=== PATIENT | female | born 1935 | race Caucasian/White ===

== ENCOUNTER 2016-09-27 19:54 | Inpatient (IN) | payer MEDICARE, OTHER ==
[~2016-09-27] VITALS: Ht 162.6 cm; Wt 75.0 kg
[~2016-09-27 19:54] MED LIST: CATAPRES0.1 MG PO; K-TAB10 MEQ PO; LASIX20 MG PO; METOPROLOL TAR100 M1 PO; NORCO 10/325 TA1 TA1 PO
--- NOTE | 2016-09-27 20:58 | NUR ---
RECIEVED TO ROOM 2122 FROM [facility] VIA EMS. PT A&O, RESPERATIONS EVEN ON RA. IV TO LEFT AC SL, SITE CLEAN AND DRY. PT C/O SORE THROAT, GAVE HER SOME ICE CHIPS AND INFORMED HER THAT I WILL CALL HER PHYSICIAN TO SEE IF WE CAN GET SOMETHING TO HELP HER THROAT. NO OTHER NEEDS AT THIS TIME, BED LOW, CL IN REACH, WILL CONT TO MONITOR.
[2016-09-27] MEDS ORDERED: LIPITOR80 MG PO (21:03)
[2016-09-27] MEDS ORDERED: PLAVIX75 MG PO (21:03)
[2016-09-27] MEDS ORDERED: BAYER CHEWABLE81 MG PO (21:03)
[2016-09-27] MEDS ORDERED: VENTOLIN HFA18 GM INH (21:05)
--- NOTE | 2016-09-27 22:10 | NUR ---
CHLORASEPTIC SPRAY GIVEN FOR C/O SORE THROAT.
--- NOTE | 2016-09-27 22:55 | NUR ---
D5NS INFUSING TO LEFT AC AT 50 CC/HR. PT DENIES NEEDS.
[2016-09-27 23:21] VITALS: BP 111/71; Ht 162.6 cm; Wt 75.0 kg
[2016-09-27 23:52] VITALS: BP 112/62
--- NOTE | 2016-09-28 01:33 | NUR ---
RESTING WITH EYES CLOSED, RESPERATIONS EVEN, NO S/S DISTRESS NOTED.
[2016-09-28 03:53] VITALS: BP 137/65
[2016-09-28 05:14] LABS: BASOPHILS 0.3 % (0-2); EOSINOPHILS 1.4 % (0-7); HEMATOCRIT 38.9 % (36.0-48.0); HEMOGLOBIN 12.6 g/dL (12-16); IMMATURE GRANULOCYTES 0.1 % (0-5); LYMPHOCYTES 12.6 % (15-50); MCH 29.5 pg (26.0-34.0); MCHC 32.4 g/dL (31.0-37.0); MCV 91.1 fL (80.0-100.0); MEAN PLATELET VOLUME 9.7 fL (7.4-10.4); MONOCYTES 8.4 % (2-11); NEUTROPHILS 77.2 % (40-80); RBC 4.27 10x6/uL (4.00-5.40); WBC 6.9 10x3/uL (4.8-10.8)
[2016-09-28 05:27] LABS: PLATELET COUNT 134 10x3/uL (130-400)
[2016-09-28 05:39] LABS: ALBUMIN 3.2 g/dL (3.4-5.0); ANION GAP 10.7 mmol/L (8-16); BILIRUBIN - DIRECT 0.31 mg/dL (0.00-0.30); BILIRUBIN - TOTAL 1.1 mg/dL (0.2-1.3); CALCIUM 8.3 mg/dL (8.5-10.1); CARBON DIOXIDE 26.8 mmol/L (21.0-32.0); CREATININE - SERUM 0.9 mg/dL (0.6-1.3); POTASSIUM - SERUM 3.5 mmol/L (3.5-5.1); PROTEIN - SERUM 6.4 g/dL (6.4-8.2)
--- NOTE | 2016-09-28 07:28 | NUR ---
PT SITTING UP IN BED WATCHING TV, DENIES ANY NEEDS. RR EVEN AND UNLABORED WILL CONT TO MONITOR
[2016-09-28 08:41] VITALS: BP 126/76
--- NOTE | 2016-09-28 09:10 | NUR ---
PT IN LEFT TILT POSITION. PHYSICAL ASSESSMENT DONE, SEE SHIFT ASSESS. O2 INFUSING VIA NC AT 2L/MIN. PT REPORTS PAIN IN THROAT AND HAS A PRODUCTIVE COUGH. REQUESTED THAT PT SAVE NEXT SPUTUM PRODUCTION FOR VIEWING. PT VERBALIZES UNDERSTANDING. EXPIRATORY WHEEZES NOTED IN RIGHT LOBES; LEFT LUNG BOATENG CLEAR TO AUSCULTATION. BOWEL SOUNDS ACTIVE, ABDOMEN DISTENDED. UPPER QUADRANTS PERCUSS HYPORESONANT. PT REPORTS PASSING GAS, DENIES BM SINCE 09/25/16. PT RATES PAIN 8/10 AND REQUESTS PAIN MED FOR THROAT. ORDERED NARCOTIC GIVEN AT THIS TIME. PT DENIES FURTHER NEEDS AT THIS TIME.
--- NOTE | 2016-09-28 10:40 | NUR ---
PT IN LEFT LATERAL POSITION RESTING WITH EYES CLOSED. RESP. EVEN AND UNLABORED. NO DISTRESS NOTED.
--- NOTE | 2016-09-28 12:00 | NUR ---
PT IN SEMI FOWLERS VISITING WITH "BOYFRIEND". PT INQUIRING ABOUT ETA ON ARRIVAL OF DR CANALES. INFORMED PT THAT MD USUALLY ROUNDS LATER IN THE DAY. BOTH VERBALIZE UNDERSTANDING AND DENY FURTHER NEEDS AT THIS TIME.
[2016-09-28 12:46] VITALS: BP 92/57
--- NOTE | 2016-09-28 13:00 | NUR ---
PT IN LEFT LATERAL POSITION RESTING WITH EYES CLOSED. RESP. EVEN AND UNLABORED.
--- NOTE | 2016-09-28 15:10 | NUR ---
PT IN LEFT TILT POSITION. PT PRODUCING GREENISH YELLOW SPUTUM WITH COUGHING AND REPORTS PAIN OF 10/10 IN RIGHT UPPER QUADRANT AND THROAT. NORCO GIVEN ORDERED. PT REQUESTING BREATHING TREATMENT TO BE ADMINISTERED.
--- NOTE | 2016-09-28 15:24 | NUR ---
RESPIRATORY IN ROOM TO ADMINISTER MED. O2 SAT 97 ON 2L/MIN. PT DENIES FURTHER NEEDS AT THIS TIME.
--- NOTE | 2016-09-28 15:55 | NUR ---
PT CONTINUES TO COUGH UP YELLOW/GREEN SPUTUM, SCANT AMOUNT OF BRIGHT RED BLOOD NOTED IN SPUTUM. ASKED PT IF THIS HAS BEEN HAPPENING, PT STATES, I HAVE BEEN COUGHING THIS BLOOD UP ALL DAY AND I HAVE BEEN THROWING THE KLEENEX IN THE TRASHCAN. MULTIPLE TISSUES NOTED IN TRASH WITH SPOTS OF BRIGHT RED BLEEDING NOTED. REPORT GIVEN TO VIVIANA NAILS.
--- NOTE | 2016-09-28 16:10 | NUR ---
PT TO RADIOLOGY FOR CHEST XRAY.
[2016-09-28 16:53] VITALS: BP 114/58
--- NOTE | 2016-09-28 18:33 | NUR ---
PT SITTING UP IN BED WATCHING TV, DENIES ANY NEEDS. SENT SPUTUM SPECIMEN TO THE LAB
--- NOTE | 2016-09-28 21:00 | NUR ---
DR FRIAS ON UNIT SEEING PATIENT. NEW ORDERS RECIEVED FOR CT OF CHEST WITH CONTRAST IN AM.
[2016-09-28 22:32] VITALS: BP 98/62
[2016-09-29 00:42] VITALS: BP 116/67
[2016-09-29 06:10] VITALS: BP 128/67
--- NOTE | 2016-09-29 07:29 | NUR ---
PT IS SITTING UP IN BED TALKING ON THE PHONE, DENIES ANY NEEDS AT THIS TIME WILL CONT TO MONITOR
[2016-09-29 07:55] VITALS: BP 130/80
--- NOTE | 2016-09-29 09:10 | NUR ---
TRANSFERRED PT TO MED SURG TO ROOM 2202. TIFFANIE IS RECEIVING NURSE. CALLED PT DAUGHTER STEFAN TO LET HER KNOW.
--- NOTE | 2016-09-29 10:00 | NUR ---
PT AOX4 RESP EVEN AND NONLABORED IV TO LEFT AC PATENT AND INTACT PT DENIES NEEDS AT AT THIS TIME SRX2 BED AT LOWEST SETTING CALL LIGHT WITHIN REACH WILL CONTINUE TO MONITOR
[2016-09-29 12:25] VITALS: BP 117/78
[2016-09-29 16:59] VITALS: BP 116/68
--- NOTE | 2016-09-29 19:20 | NUR ---
ASSESSMENT COMPLETED, NO ACUTE DISTRESS NOTED, NC IN PLACE, L AC IV INFUSING, PT DENIES NEEDS AT THIS TIME, SR'S UP X2, CL IN REACH, WILL MONITOR
[2016-09-29 20:00] VITALS: BP 114/51
--- NOTE | 2016-09-29 20:38 | NUR ---
MEDS GIVEN PER MAR, SANDIP WELL, SR'S UP, CL IN REACH
--- NOTE | 2016-09-29 22:31 | NUR ---
SOLUMEDROL GIVEN PER MAR, SANDIP WELL, DENIES NEEDS AT THIS TIME, FALL PRECAUTIONS IN PLACE, CL IN REACH
--- NOTE | 2016-09-29 23:22 | NUR ---
RESTING WITH EYES CLOSED, NO DISTRESS NOTED, SAFETY MEASURES IN PLACE, CL IN REACH
[2016-09-30] VITALS: BP 120/60
[2016-09-30 04:00] VITALS: BP 122/66
[2016-09-30 08:16] VITALS: BP 126/81
[2016-09-30 12:37] VITALS: BP 113/74
[2016-09-30 16:48] VITALS: BP 116/68
[2016-09-30 20:00] VITALS: BP 111/69
--- NOTE | 2016-09-30 22:50 | NUR ---
IV TO L AC INFILTRATED, DC'D WITH CATH INTACT, 20G PLACED IN R WRIST X 1 ATTEMPT, SANDIP WELL, SAFETY MEASURES IN PLACE
[2016-10-01] VITALS: BP 132/66
--- NOTE | 2016-10-01 01:23 | NUR ---
RESTING WITH EYES CLOSED, RESP WITH EASE, NO DISTRESS NOTED, SR'S UP, CL IN REACH
[2016-10-01 04:00] VITALS: BP 122/74
[2016-10-01 06:42] LABS: BASOPHILS 0 % (0-2); EOSINOPHILS 0 % (0-7); HEMATOCRIT 34.5 % (36.0-48.0); HEMOGLOBIN 11.3 g/dL (12-16); IMMATURE GRANULOCYTES 0.5 % (0-5); LYMPHOCYTES 6.4 % (15-50); MCH 29.4 pg (26.0-34.0); MCHC 32.8 g/dL (31.0-37.0); MCV 89.6 fL (80.0-100.0); MONOCYTES 7.1 % (2-11); RBC 3.85 10x6/uL (4.00-5.40); RDW 12.5 % (11.5-14.5)
[2016-10-01 06:45] LABS: PLATELET COUNT 170 10x3/uL (130-400)
[2016-10-01 07:02] LABS: ANION GAP 12.6 mmol/L (8-16); CALCIUM 8.2 mg/dL (8.5-10.1); CARBON DIOXIDE 25.6 mmol/L (21.0-32.0); CREATININE - SERUM 0.9 mg/dL (0.6-1.3); POTASSIUM - SERUM 3.2 mmol/L (3.5-5.1)
--- NOTE | 2016-10-01 07:45 | NUR ---
PT AOX4 RESP EVEN AND NONLABORED PT DENIES NEEDS AT THIS TIME IV TO LEFT AC PATENT AND INTACT SRX2 BED AT LOWEST SETTING SRX2 BED AT LOWEST SETTING CALL LIGHT WITHIN REACH WILL CONTINUE TO MONITOR
[2016-10-01 08:38] VITALS: BP 140/90
[2016-10-01 12:13] VITALS: BP 156/86
[2016-10-01 18:49] VITALS: BP 142/74
--- NOTE | 2016-10-01 19:19 | NUR ---
PT SITTING UP IN BED TALKING ON PHONE, ASSESSMENT COMPLETED, NO ACUTE DISTRESS NOTED, DENIES PAIN OR NEEDS AT THIS TIME, IV INFUSING TO R WRIST, SR'S UP, CL IN REACH, WILL MONITOR
[2016-10-01 20:00] VITALS: BP 159/81
--- NOTE | 2016-10-01 20:02 | NUR ---
MEDS GIVEN PER MAR, SANDIP WELL, DENIES NEEDS AT THIS TIME, FALL PRECAUTIONS IN PLACE, CL IN REACH
--- NOTE | 2016-10-01 23:15 | NUR ---
SITTING UP IN BED, NO DISTRESS NOTED, DENIES NEEDS, FALL PRECAUTIONS IN PLACE, CL IN REACH
[2016-10-02] VITALS: BP 150/81
[2016-10-02 04:00] VITALS: BP 156/84
[2016-10-02 07:50] VITALS: BP 162/86
[2016-10-02 09:13] LABS: BASOPHILS 0.1 % (0-2); EOSINOPHILS 0 % (0-7); HEMATOCRIT 36.8 % (36.0-48.0); IMMATURE GRANULOCYTES 1.4 % (0-5); LYMPHOCYTES 7.8 % (15-50); MCH 29.4 pg (26.0-34.0); MCHC 32.6 g/dL (31.0-37.0); MCV 90.2 fL (80.0-100.0); MEAN PLATELET VOLUME 9.9 fL (7.4-10.4); MONOCYTES 8.6 % (2-11); NEUTROPHILS 82.1 % (40-80); PLATELET COUNT 222 10x3/uL (130-400); RBC 4.08 10x6/uL (4.00-5.40); RDW 12.9 % (11.5-14.5); WBC 9.3 10x3/uL (4.8-10.8)
[2016-10-02 09:34] LABS: ALBUMIN 2.9 g/dL (3.4-5.0); ANION GAP 13.6 mmol/L (8-16); CALCIUM 8.5 mg/dL (8.5-10.1); CARBON DIOXIDE 24.6 mmol/L (21.0-32.0); CREATININE - SERUM 0.9 mg/dL (0.6-1.3); POTASSIUM - SERUM 3.2 mmol/L (3.5-5.1); PROTEIN - SERUM 6.7 g/dL (6.4-8.2)
[2016-10-02 09:47] LABS: BILIRUBIN - TOTAL 0.36 mg/dL (0.2-1.3)
--- NOTE | 2016-10-02 09:50 | NUR ---
PATIENT ALERT IN HIGH GARLAND POSITION WATCHING TV. NO SIGNS OF DISTRESS NOTED. SIDE RAILS UP X2. BED IN LOW POSITION. CALL LIGHT IN REACH.
[2016-10-02 12:32] VITALS: BP 169/92
[2016-10-02 15:48] VITALS: BP 179/84
--- NOTE | 2016-10-02 19:28 | NUR ---
PT SITTING UP IN BED TALKING ON PHONE, ASSESSMENT COMPLETED, NO ACUTE DISTRESS NOTED, DENIES NEEDS AT THIS TIME, SR'S UP, CL IN REACH, WILL MONITOR
[2016-10-02 20:00] VITALS: BP 155/83
--- NOTE | 2016-10-02 21:15 | NUR ---
WATCHING TV, DENIES NEEDS, FALL PRECAUTIONS IN PLACE, CL IN REACH
--- NOTE | 2016-10-02 23:28 | NUR ---
RESTING WITH EYES CLOSED, NC IN PLACE, NO DISTRESS NOTED, SR'S UP X2, CL IN REACH
[2016-10-03 04:00] VITALS: BP 147/90
[2016-10-03 05:27] LABS: BASOPHILS 0 % (0-2); EOSINOPHILS 0 % (0-7); HEMATOCRIT 35.9 % (36.0-48.0); HEMOGLOBIN 11.9 g/dL (12-16); IMMATURE GRANULOCYTES 1.7 % (0-5); LYMPHOCYTES 7.2 % (15-50); MCH 29.6 pg (26.0-34.0); MCHC 33.1 g/dL (31.0-37.0); MCV 89.3 fL (80.0-100.0); MONOCYTES 7.5 % (2-11); NEUTROPHILS 83.6 % (40-80); PLATELET COUNT 201 10x3/uL (130-400); RBC 4.02 10x6/uL (4.00-5.40); RDW 12.7 % (11.5-14.5); WBC 7.8 10x3/uL (4.8-10.8)
[2016-10-03 05:49] LABS: ANION GAP 10.6 mmol/L (8-16); CALCIUM 8.2 mg/dL (8.5-10.1); CARBON DIOXIDE 29.6 mmol/L (21.0-32.0); CREATININE - SERUM 0.8 mg/dL (0.6-1.3); PHOSPHOROUS 3.1 mg/dL (2.5-4.9); POTASSIUM - SERUM 3.2 mmol/L (3.5-5.1)
[2016-10-03 07:50] VITALS: BP 158/85
--- NOTE | 2016-10-03 07:56 | NUR ---
AWAKE AND ALERT. ORIENTED X3. C/O PAIN WITH COUGH THIS AM. LUNGS HAVE WHEEZES IN LEFT UPPER LOBES AND DIMINISHED THROUGHOUT. OCCASSIONAL PRODUCTIVE COUGH NOTED WITH YELLOWISH SPUTUM. SKIN IS INTACT WITHOUT REDNESS. IV TO RIGHT WRIST PATENT WITHOUT REDNESS AT INSERTION SITE. DENIES NEEDS. OFF UNIT VIA WC FOR EXRAY.
--- NOTE | 2016-10-03 09:26 | NUR ---
* Is the patient Alert and Oriented? Yes 0 * How many steps to enter\exit or inside your home? 2 0 * PCP RODRIGUEZ 0 * Pharmacy [facility] [address] 0 * Preadmission Environment Home with Family 0 * ADLs Independent 0 * Equipment None 0 * List name and contact numbers for known caregivers / representatives who currently or will assist patient after discharge: ALBERT GASCA ( BOYFRIEND) [phone] 0 * Community resources currently utilized None 0 * Additional services required to return to the preadmission environment? No 0 * Can the patient safely return to the preadmission environment? Yes 0 * Has this patient been hospitalized within the prior 30 days at any hospital? No 0 Grand Total: 0 Patient Name: SELAM PRAKASH Admission Status: Elective Accout number: [id number] Admission Date: 09-29-2016 : 1935 Admission Diagnosis:PNEUMONIA, UNSPECIFIED ORGANISM Attending: MAXIMINO Current LOS: 4 Anticipated DC Date: Planned Disposition: Home Primary Insurance: MEDICARE A & B Discharge Planning Comments: CM met with patient to assess discharge planning needs. Patient states that she lives with her boyfriend (Albert Vazquez) [phone] who will be driving her home when the time comes. She states that she is independent with her daily needs and her house is safe to return too. She has 2 steps and denies any problems with them. She denies any HH or CM at this time. CM will continue to follow and assess as needed. PCP: Rodriguez Vazquez ([phone]) Pharmacy: [facility] [address] Operator Forming: Kira Jackson
--- NOTE | 2016-10-03 09:30 | NUR ---
UP TO SHOWER WITH SET UP ASSISTANCE. REPORTS NO RELIEF WITH USE OF HYDROCODONE. WILL MONITOR.
[2016-10-03 11:30] VITALS: BP 141/87
--- NOTE | 2016-10-03 12:30 | NUR ---
LUNCH TRAY SERVED IN ROOM. FEEDS SELF WITH SET UP. DENIES NEEDS.
--- NOTE | 2016-10-03 15:00 | NUR ---
RESTING QUIETLY IN BED. COUGH IS MORE INTENSE WITH LESS PRODUCTION. WILL CONTINUE TO MONITOR.
[2016-10-03 15:43] VITALS: BP 152/74
--- NOTE | 2016-10-03 18:32 | NUR ---
ATE ABOUT HALF OF SUPPER. NO C/O AT THIS TIME. DENIES NEEDS. NO CHANGES NOTED.
--- NOTE | 2016-10-03 19:10 | NUR ---
LYING IN BED TALKING ON PHONE, ASSESSMENT COMPLETED, NO DISTRESS NOTED, NC IN PLACE, IV INFUSING TO R WRIST, DENIES PAIN OR NEEDS AT THIS TIME, SR'S UP, CL IN REACH, WILL MONITOR
[2016-10-03 20:00] VITALS: BP 175/96
--- NOTE | 2016-10-03 20:45 | NUR ---
PRN NORCO GIVEN FOR C/O HEADACHE ALONG WITH ROUTINE MEDS, SANDIP WELL, DENIES FURTHER NEEDS AT THIS TIME, FALL PRECAUTIONS IN PLACE, CL IN REACH
--- NOTE | 2016-10-03 23:18 | NUR ---
RESTING WITH EYES CLOSED, NO SS OF PAIN OR DISTRESS NOTED, SR'S UP, CL IN REACH
--- NOTE | 2016-10-04 01:18 | NUR ---
RESTING WITH EYES CLOSED, NO DISTRESS NOTED, FALL PRECAUTION IN PLACE, CL IN REACH
[2016-10-04 04:00] VITALS: BP 157/82
--- NOTE | 2016-10-04 07:30 | NUR ---
AWAKE AND ALERT. ORIENTED X3. C/O HEADACHE PAIN THIS AM. REQUESTED AND GIVEN ONE HYDROCODONE PO FOR SAME. WILL MONITOR. WARM PACK PLACED TO BACK OF NECK WELL. LUNGS HAVE CRACKLES AND WHEEZES THROUGHOUT. PRODUCTIVE COUGH NOTED AT TIMES. IV TO RIGHT WRIST IS PATENT WITHOUT REDNESS AT INSERTION SITE. DENIES NEEDS.
[2016-10-04 09:17] VITALS: BP 164/86
--- NOTE | 2016-10-04 09:59 | NUR ---
ATE MOST OF BREAKFAST. REPORTS HEADACHE IMPROVED AT THIS TIME. DENIES NEEDS.
[2016-10-04 11:54] VITALS: BP 147/90
[2016-10-04] MEDS ORDERED: PREDNISONE5 MG PO (13:57)
[2016-10-04] MEDS ORDERED: LEVAQUIN750 MG PO (13:57)
--- NOTE | 2016-10-04 14:33 | NUR ---
PATIENT BEING DISCHARGED TODAY WITH PARTNER TO DRIVE HOME. PATIENT DENIES ANY HH OR CM NEEDS.
--- NOTE | 2016-10-04 14:53 | NUR ---
DISCHARGED TO HOME AMBULATORY WITH SIGNIFICANT OTHER. DISCHARGE INSTRUCTIONS GIVEN BOTH VERBALLY AND WRITTEN. ALL QUESTIONS ANSWERED. PATIENT AND SIGNIFICANT OTHER VERBALIZED UNDERSTANDING OF SAME. NEEDED PRESCRIPTIONS GIVEN TO PATENT. IV TO RIGHT WRIST D/C WITH CATHETER INTACT.
== END 2016-10-04 14:55 | disposition home or self-care (01) | DRG 198 ==
LOC: D.M2 19:54 → OBSVTIME 19:55 → D.MS 09-29 09:10
PROVIDERS: Internal Medicine Pulmonary Disease; ADMIT Legal Medicine
DX: J84.89 Other specified interstitial pulmonary diseases (principal); I10 Essential (primary) hypertension; K80.20 Calculus of gallbladder without cholecystitis without obstruction; R07.9 Chest pain, unspecified; J44.9 Chronic obstructive pulmonary disease, unspecified; J02.9 Acute pharyngitis, unspecified

== ENCOUNTER 2016-10-05 09:11 | Inpatient (IN) | payer MEDICARE, OTHER ==
[~2016-10-05] VITALS: Ht 162.6 cm; Wt 72.9 kg
[~2016-10-05 09:11] MED LIST changes: +BAYER CHEWABLE81 MG PO; +LEVAQUIN750 MG PO; +LIPITOR80 MG PO; +PLAVIX75 MG PO; +PREDNISONE5 MG PO; +VENTOLIN HFA18 GM INH
[2016-10-05 10:09] LABS: BASOPHILS 0.1 % (0-2); EOSINOPHILS 0.1 % (0-7); HEMATOCRIT 38.6 % (36.0-48.0); HEMOGLOBIN 12.8 g/dL (12-16); IMMATURE GRANULOCYTES 0.6 % (0-5); LYMPHOCYTES 7.7 % (15-50); MCH 29.5 pg (26.0-34.0); MCHC 33.2 g/dL (31.0-37.0); MCV 88.9 fL (80.0-100.0); MEAN PLATELET VOLUME 9.4 fL (7.4-10.4); MONOCYTES 5.3 % (2-11); NEUTROPHILS 86.2 % (40-80); PLATELET COUNT 202 10x3/uL (130-400); RBC 4.34 10x6/uL (4.00-5.40); RDW 12.7 % (11.5-14.5); WBC 9.7 10x3/uL (4.8-10.8)
[2016-10-05 11:04] LABS: ANION GAP 9.9 mmol/L (8-16); BILIRUBIN - TOTAL 0.7 mg/dL (0.2-1.3); CALCIUM 8.4 mg/dL (8.5-10.1); CARBON DIOXIDE 32.1 mmol/L (21.0-32.0); CREATININE - SERUM 0.8 mg/dL (0.6-1.3); PROTEIN - SERUM 6.3 g/dL (6.4-8.2)
--- NOTE | 2016-10-05 14:29 | NUR ---
RECEIVED TO ROOM 2205 FROM [facility]. CALL LIGHT IN REACH. WILL CONTINUE WITH PLAN OF CARE.
[2016-10-05 14:31] VITALS: BP 157/91
[2016-10-05 14:37] VITALS: BP 157/91; BMI 28.9
--- NOTE | 2016-10-05 15:17 | NUR ---
NS INITIATED @ 30 CC/HR VIA PUMP PER ORDER. CALL LIGHT IN REACH.
--- NOTE | 2016-10-05 16:41 | NUR ---
SCDs APPLIED TO BLE PER MD ORDER. TELEMETRY NOT AVAILABLE D/T WAITING LIST.
--- NOTE | 2016-10-05 16:59 | NUR ---
CALLED TO PATIENT ROOM BY FATOU. PT TOLD ME THAT SHE TOLD HER SISTER LAST NIGHT THAT SHE WANTED TO HANG HERSELF CAUSE SHE WAS TIRED OF HURTING AND COULDNT BREATHE. MET WITH PT-TALKED TO HER. SHE STATED THAT SHE WOULD NOT HURT HERSELF IN THE HOSPITAL. DR FRIAS NOTIFIED.
--- NOTE | 2016-10-05 18:08 | NUR ---
NO CHANGES IN INITIAL ASSESSMENT. SCDs ON. CALL LIGHT IN REACH. WILL CONTINUE WITH PLAN OF CARE.
--- NOTE | 2016-10-05 19:00 | NUR ---
BEDSIDE REPORT RECEIVED AND CARE OF PT ASSUMED. PT LYING IN SEMI GARLAND'S POSITION VISITING WITH SPOUSE. IV IN LEFT HAND PATENT WITH NS INFUSING AT 30 ML / HR. O2 IN USE AT 4L VIA NC. SCD'S IN USE ON BLE. WILL MONITOR CLOSELY FOR NEEDS.
[2016-10-05 20:00] VITALS: BP 155/88
--- NOTE | 2016-10-05 20:00 | NUR ---
CALLED RAJESH.FavioCHERRY PITTER FOR DR FRIAS AND RECEIVED ORDERS TO RE-START HOME MEDICATIONS.
--- NOTE | 2016-10-05 21:33 | NUR ---
HS MEDICATIONS GIVEN.
--- NOTE | 2016-10-05 21:34 | NUR ---
STARTED 1 OF 4 10 MEQ POTASSIUM RIDERS PER NEW ORDER.
--- NOTE | 2016-10-05 22:30 | NUR ---
STARTED 20 GUAGE IV IN RIGHT AC PER REQUEST FROM RADIOLOGY FOR CTA.
--- NOTE | 2016-10-05 23:00 | NUR ---
PT TAKEN TO RADIOLOGY FOR CTA AND RETURNED BY RADIOLOGY STAFF.
[2016-10-06] VITALS: BP 151/73
[2016-10-06 04:00] VITALS: BP 144/73
--- NOTE | 2016-10-06 04:01 | NUR ---
PT RESTING QUIETLY IN SEMI GARLAND'S POSITION. CALL LIGHT WITHIN REACH.
--- NOTE | 2016-10-06 07:30 | NUR ---
RESTING, DENIES NEEDS, BED LOWEST POSITION, CALL LIGHT IN REACH, WILL CONTINUE TO MONITOR
[2016-10-06 07:40] VITALS: BP 137/78
--- NOTE | 2016-10-06 08:50 | NUR ---
* Is the patient Alert and Oriented? Yes 0 * How many steps to enter\exit or inside your home? 2 0 * PCP RODRIGUEZ 0 * Pharmacy [facility] [address] 0 * Preadmission Environment Home with Family 0 * ADLs Independent 0 * Equipment None 0 * List name and contact numbers for known caregivers / representatives who currently or will assist patient after discharge: ALBERT STEVNESON 0 * Community resources currently utilized None 0 * Additional services required to return to the preadmission environment? Yes 0 * Can the patient safely return to the preadmission environment? Yes 0 * Has this patient been hospitalized within the prior 30 days at any hospital? Yes 0 Grand Total: 0 Patient Name: SELAM PRAKASH Admission Status: ER Accout number: [id number] Admission Date: 10-05-2016 : 1935 Admission Diagnosis: Attending: MAXIMINO Current LOS: 1 Anticipated DC Date: Planned Disposition: Home Primary Insurance: MEDICARE A & B Discharge Planning Comments: CM met with patient to assess and discuss discharge planning needs. Patient was just discharged from hospital and stated that she did not need any services at the time of discharge. She will need home health set up this time and she agreed. She would not pick a agency because she wanted to speak with Rodriguez first. Her discharge plan is to return home with her boyfriend Albert and he will be the one to drive her. CM will continue to follow and assist. PCP: Rodriguez Stevenson [phone] [facility] [address] [facility] Rn: Kira Jackson
--- NOTE | 2016-10-06 09:15 | NUR ---
SLEEPING AT THIS TIME WITH RESPIRATIONS EVEN AND NON LABORED. CALL LIGHT IN REACH AND DOOR OPEN. WILL CONTINUE WITH PLAN OF CARE.
[2016-10-06 12:24] VITALS: BP 165/85
[2016-10-06 15:34] VITALS: BP 146/83
[2016-10-06 19:00] VITALS: BP 145/86
--- NOTE | 2016-10-06 19:00 | NUR ---
BEDSIDE REPORT RECEIVED AND CARE OF PATIENT ASSUMED. PT LYING IN SEMI GARLAND'S POSITION VISITING WITH FAMILY MEMBERS. IV IN RIGHT AC SALINE LOCKED. O2 IN USE VIA NC AT 4L. WILL MONITOR CLOSEY FOR NEEDS.
--- NOTE | 2016-10-06 21:36 | NUR ---
HS MEDICATIONS GIVEN. WILL CONTINUE TO MONITOR FOR NEEDS.
[2016-10-07] VITALS: BP 140/82
--- NOTE | 2016-10-07 00:30 | NUR ---
PT RESTING QUIETLY ON RIGHT SIDE WITH EYES CLOSED AND EASY RESPIRATIONS. WILL CONTINUE TO MONITOR FOR NEEDS.
[2016-10-07 04:00] VITALS: BP 142/85
--- NOTE | 2016-10-07 07:35 | NUR ---
DENIES NEEDS, DAUGHTER AT BEDSIDE, BED LOWEST POSITION, CALL LIGHT IN REACH, WILL CONTINUE TO MONITOR
[2016-10-07 07:36] VITALS: BP 154/83
[2016-10-07 12:09] VITALS: BP 161/88
[2016-10-07 13:21] VITALS: Ht 162.6 cm; Wt 72.9 kg
[2016-10-07 14:13] LABS: CREATINE KINASE 143 UL (21-215)
[2016-10-07 14:15] LABS: TROPONIN-I < 0.017 ng/mL (0.000-0.060)
[2016-10-07 15:14] VITALS: BP 113/72
[2016-10-07 16:52] LABS: CREATINE KINASE 142 UL (21-215); TROPONIN-I < 0.017 ng/mL (0.000-0.060)
--- NOTE | 2016-10-07 19:50 | NUR ---
PT. IN BED WITH HOB UP FOR COMFORT AND VISITING WITH RELATIVES. O2 @ 4L/MIN VIA N/C AND RAC IV SALINE LOCKED AT THIS TIME. ASSESSMENT COMPELTED. CALL LIGHT WITHIN REACH AND NO VOICED NEEDS AT THIS TIME.
[2016-10-07 20:00] VITALS: BP 143/88
[2016-10-07 22:10] LABS: CKMB 0.8 U/L (0.0-3.6); CREATINE KINASE 134 UL (21-215); TROPONIN-I < 0.017 ng/mL (0.000-0.060)
[2016-10-08 00:11] VITALS: BP 126/67
[2016-10-08 04:00] VITALS: BP 140/78
--- NOTE | 2016-10-08 06:44 | NUR ---
PT. IN BED WITH HOB UP FOR COMFORT. O2 AT 4L/MIN VIA N/C WITHOUT ANY S/S DISTRESS OBSERVED. NO VOICED NEEDS AND CALL LIGHT IS WITHIN REACH.
--- NOTE | 2016-10-08 08:18 | NUR ---
AWAKE AND ALERT. ORIENTED X3. LUNGS HAVE WHEEZES THROUGHOUT LUNG BOATENG. REPORTS OCCASSIONAL PRODUCTIVE COUGH. SKIN IS INTACT WITHOUT REDNESS. SCD'S IN PLACE. IV TO RIGHT AC IS PATENT WITHOUT REDNESS AT INSERTION SITE. DENIES NEEDS.
[2016-10-08 08:59] VITALS: BP 112/88
--- NOTE | 2016-10-08 11:21 | NUR ---
ATE OVER HALF OF BREAKFAST. DENIES NEEDS. PRODUCTIVE COUGH NOTED.
--- NOTE | 2016-10-08 12:15 | NUR ---
ATE ALMOST ALL OF LUNCH. DAUGHTER AT BEDSIDE. AMBULATED IN HALLWAY OVER 1000 FEET WITH SBA.
[2016-10-08 13:13] VITALS: BP 126/80
--- NOTE | 2016-10-08 15:00 | NUR ---
AMBULATED IN HALLWAY WITH SIGNIFICANT OTHER OVER 1000 FEET. NO SOB WITH INCREASED EXERTION. DENIES NEEDS.
[2016-10-08 17:43] VITALS: BP 137/87
--- NOTE | 2016-10-08 18:53 | NUR ---
ATE ALMOST ALL OF SUPPER. NO C/O AT THIS TIME. DENIES NEEDS. NO CHANGES NOTED.
[2016-10-08 20:00] VITALS: BP 122/67
--- NOTE | 2016-10-08 20:00 | NUR ---
REC'D IN BED AWAKE AND ALERT. RESP EVEN AND UNLABORED WITH NO DISTRESS NOTED. PARTY PLAN SALESPERSON EXPRES NEEDS AND WANTS. TURN AND REPOSITION SELF AB CLAUDIA. NO C/O NOTE JOHNNY VOICED. ASSESSMENT COMPLETED. CL IN REACH AT BEDSIDE.
[2016-10-09] VITALS: BP 149/77
[2016-10-09 04:00] VITALS: BP 134/86
--- NOTE | 2016-10-09 04:33 | NUR ---
PATIENT RESTING WITH EYES CLOSED AND NO VISIBLE SIGNS OF DISTRESS. BED IN LOWEST POSITION AND CALL LIGHT WITHIN REACH.
--- NOTE | 2016-10-09 08:08 | NUR ---
AWAKE AND ALERT.ORIENTED X3. NO C/O THIS AM. LUNGS HAVE CRACKLES AND INSPIRATORY WHEEZES THROUGHOUT. OCCASSIONALLY PRODUCTIVE COUGH NOTED. SKIN IS INTACT WITHOUT REDNESS. SL TO RIGHT AC IS PATENT WITHOUT REDNESS AT INSERTION SITE. DENIES NEEDS AT THIS TIME.
[2016-10-09 09:02] VITALS: BP 132/76
--- NOTE | 2016-10-09 10:30 | NUR ---
RESTING QUIETLY WITH EYES CLOSED. NO C/O AT THIS TIME.
--- NOTE | 2016-10-09 12:30 | NUR ---
ATE ALMOST ALL OF LUNCH. STATED SHE WILL WALK WHEN HER DAUGHTER GETS HERE.
[2016-10-09 12:44] VITALS: BP 149/82
--- NOTE | 2016-10-09 15:00 | NUR ---
AMBULATED OVER 1000 FEET WITH DAUGHTER IN HALLWAY. NO SOB WITH EXERTION.
--- NOTE | 2016-10-09 18:58 | NUR ---
ATE ALL OF SUPPER. FAMILY AT BEDSIDE. DENIES NEEDS. NO CHANGES NOTED.
[2016-10-10] VITALS: BP 116/71
--- NOTE | 2016-10-10 02:00 | NUR ---
PT IN BED WITH NO DISTRESS. RESPIRATIONS EVEN AND UNLABORED. SIDE RAILS X 2. BED IS LOW. CALL LIGHT IS IN REACH.
[2016-10-10 04:00] VITALS: BP 118/68
--- NOTE | 2016-10-10 08:22 | NUR ---
PT SEEN. NO COMPLAINTS AT PRESENT. UPPER LOBES WITH EXP WHEEZE WITH LOWER LOBES DIMINISHED. CONTINUES TO WEAR OXYGEN AT 2LNC - SAT 95%. FAMILY AT BEDSIDE. POSSIBLE DISCHARGE TODAY. CALL LIGHT IN REACH
[2016-10-10 08:26] VITALS: BP 173/78
[2016-10-10] MEDS ORDERED: IPRAT-ALBUT 0.5-3 ML UPD (09:42)
[2016-10-10] MEDS ORDERED: TUDORZA PRESS400 MCG INH (09:43)
[2016-10-10] MEDS ORDERED: PREDNISONE10 MG PO (09:50)
--- NOTE | 2016-10-10 10:11 | EC ---
PATIENT:SELAM PRAKASH DATE OF SERVICE: 10/05/16 SEX: F MEDICAL RECORD: [id number] DATE OF : [birth year] LOCATION:[facility] AGE OF PATIENT: 81 ADMISSION DATE: 10/05/16 REFERRING PHYSICIAN: INTERPRETING PHYSICIAN: NITIN LEONARDO MD ECHOCARDIOGRAM REPORT ECHO CHARGES 4 ECHO COMPLETE CLINICAL DIAGNOSIS: SOB ECHOCARDIOGRAPHIC MEASUREMENTS (adult normal given) AC root (d.<3.7cm) 3.5 LV Septum d (<1.2 cm> 1.7 Valve Excursion 1.3 LV Septum (systole) 2.3 Left Atria (s.<4.0cm> 4.5 LVPW d(<1.2cm) 1.6 RV (d.<2.3cm) 3.3 LVPW (sytole) 2.4 LV diastole(<5.6CM) 4.9 MV E-F(>70mm/sec) LV systole 2.4 LVOT Diameter 1.8 MV exc.(>10mm) Est.ejection fraction (50-75%) Pericardial Effusion N DOPPLER: LVIT A 121 E 68.0 LA RVSP 23.4 LVOT 152 AOP1/2T 755.0 Asc. Ao 284 RVOT 83.0 RA PA 149 AV Gradient Peak 32.2 AV Mean 16.0 AV Area 1.3 MV Gradient Peak 6.4 MV Mean 1.6 MV Area COMMENTS: Store Lead: Saray MCGREGOROE Glass Vial Bending Conveyor Feeder:Star Cr TAPE# PACS DATE OF SERVICE: 10/07/2016 Echocardiogram FINDINGS: 1. Left ventricular chamber size is within normal limits. Left ventricular systolic function is normal. Overall ejection fraction estimated at 60%. 2. Left atrium is enlarged at 4.5 cm. Right atrium and right ventricular chamber sizes are upper limits of normal. 3. Valvular structures: Aortic valve demonstrates moderate calcific aortic ECHOCARDIOGRAM REPORT [id number] SELAM PRAKASH stenosis. Valve area calculates to 1.3 cm-squared. There is a gradient of 32 mm across the valve. The remaining valvular structures have normal structure and motion. 4. Doppler interrogation elsewise reveals mild aortic insufficiency, trace tricuspid regurgitation, no other valvular insufficiency or stenosis and pulmonary systolic pressure is normal estimated at 23 mmHg. 5. No evidence of pericardial effusion or left ventricular thrombus. TRANSINT:[id number] Voice Confirmation ID: [id number] DOCUMENT ID: [id number] NITIN LEONARDO MD at 1011 CC: [id number] DICTATION DATE: 10/07/161717 NURSE: 10/08/16 0203 ADM IN [facility] [address] [id number]
[2016-10-10 12:26] VITALS: BP 125/73
--- NOTE | 2016-10-10 12:34 | NUR ---
Met with the patient and her daughter, Leanna, at the bedside. Discussed discharge for today. Discussed home health and providers. They selected [facility].TC to [facility]. Reviewed case w/ Brendon. Case accepted. Faxed clinical and referral information to [phone]. patient will be seen in the AM. CM was advised unit case reviewer had made referral to [facility] patient. The patient and daughter are in agreement w/ supplier. TC to [facility] patient. Faxed face sheet, order, H/P, pulmonary note and O2 sat on room air. Room air O2 sat was 88% at rest. Spoke w/ Chaya. Followed up phone call to confirm receipt of information.
--- NOTE | 2016-10-10 13:44 | NUR ---
DISCHARGE INSTRUCTIONS REVIEWED WITH PATIENT AND DAUGHTER. QUESTIONS ANSWERED. SALINE LOCK REMOVED INTACT AND DRESSING APPLIED. PORTABLE OXYGEN CONNECTED AT 2LNC. TO FRONT DOOR PER WC WITH BELONGINGS
--- NOTE | 2016-10-10 14:09 | CN ---
PATIENT NAME:SELAM PRAKASH MEDICAL RECORD: [id number] : 39 LOCATION:[facility] ADMIT DATE: 10/05/16 ACCOUNT: [id number] CONSULTING PHYSICIAN: EMMETT LAURENT MD REFERRING PHYSICIAN: JERONIMO FRIAS MD DATE OF CONSULTATION: 10/06/2016 IDENTIFYING DATA: The patient is 81 years old and she is admitted to the hospital on a voluntary basis. CHIEF COMPLAINT: Suicidal statements. HISTORY OF PRESENT ILLNESS: The patient is a very nice lady who is originally from [place]. She is fluent in [place] and apparently has lived in the [facility] for many decades. She says she is retired from a company in [place] and worked there for 30 years and she has been retired for the past 14 years and lives here in [place]. She says that she has been short of breath that she has had difficulty getting her oxygen and that she freely admits she made some statements about wishing, she would or could or should . She denies that she threatened to kill herself, but she also says that she was very upset and that she would never kill herself. PAST PSYCHIATRIC HISTORY: None. MENTAL STATUS EXAMINATION: The patient is awake, alert and oriented to person, place, time and situation. Her mood is flat. Her affect is generally appropriate. Thought processes are goal directed. Memory, concentration and abstraction abilities are intact and she denies any intent to harm herself or others as well as overt psychotic symptoms. ASSESSMENT: Adjustment disorder with mixed emotional features. PLAN: The patient currently is on oxygen and calm. I think that this was an acute event and simply related to distress and perhaps some overreaction on her part, but at the same time, she is telling me that she just simply could not breathe or catch her breath and so she was quite distressed. That is not an excuse for threatening to kill yourself, but that is the situation. She is 81 years old. She has never seen a psychiatrist, never attempted to hurt herself, has no history of substance abuse and does not show evidence of a dementia. In short, it is unlikely that she would decide to kill herself now, especially when she says she is very attached to her live-in boyfriend. TRANSINT:[id number] Voice Confirmation ID: [id number] DOCUMENT ID: [id number] EMMETT LAURENT MD at 1409 CC: [id number] DICTATION DATE: 10/06/16 1514 SUPERVISOR TELEPHONE INFORMATION: 10/07/16 0239 ADM IN [address] [id number]
== END 2016-10-10 14:15 | disposition home health service (06) | DRG 197 ==
LOC: D.ER 09:11 → D.MS 13:05 → OBSVTIME 13:05 → D.MS 13:05 → D.ER 13:13 → OBSVTIME 13:13 → D.MS 13:42
PROVIDERS: Emergency Medicine; Internal Medicine Interventional Cardiology; ADMIT Legal Medicine
DX: J84.116 Cryptogenic organizing pneumonia (principal); R45.851 Suicidal ideations; R07.9 Chest pain, unspecified; I10 Essential (primary) hypertension; F43.29 Adjustment disorder with other symptoms; J44.9 Chronic obstructive pulmonary disease, unspecified

== ENCOUNTER → 2016-12-23 08:30 | Outpatient (CLI) | payer MEDICARE, OTHER ==
[2016-10-07 13:21] VITALS: BMI 27.8
[~2016-12-23 08:30] MED LIST changes: +IPRAT-ALBUT 0.5-3 ML UPD; +PREDNISONE10 MG PO; +TUDORZA PRESS400 MCG INH
== END | disposition home or self-care (01) ==
LOC: D.RAD 08:30
DX: R06.02 Shortness of breath (principal)

== ENCOUNTER 2017-04-12 13:38 | Emergency (ER) | payer MEDICARE, OTHER ==
[2016-10-07 13:21] VITALS: BMI 27.8
== END 2017-04-12 15:40 | disposition home or self-care (01) ==
LOC: D.ER 13:38
DX: J06.9 Acute upper respiratory infection, unspecified (principal); J02.9 Acute pharyngitis, unspecified; I10 Essential (primary) hypertension

== ENCOUNTER → 2017-05-18 16:01 | Outpatient (CLI) | payer MEDICARE, OTHER ==
[2016-10-07 13:21] VITALS: BMI 27.8
== END | disposition home or self-care (01) ==
LOC: D.RAD 16:01
DX: J44.1 Chronic obstructive pulmonary disease with (acute) exacerbation (principal); R05 Cough; R06.02 Shortness of breath

== ENCOUNTER → 2017-06-22 07:57 | Outpatient (CLI) | payer MEDICARE, OTHER ==
[2016-10-07 13:21] VITALS: BMI 27.8
[2017-06-27 15:26] LABS: IMMUNOGLOBULIN E 15 IU/mL (0-100)
== END | disposition home or self-care (01) ==
LOC: D.RT 07:57
PROVIDERS: Internal Medicine Pulmonary Disease
DX: J45.909 Unspecified asthma, uncomplicated (principal)

== ENCOUNTER → 2017-12-21 10:13 | Outpatient (CLI) | payer MEDICARE, OTHER ==
[2016-10-07 13:21] VITALS: BMI 27.8
== END | disposition home or self-care (01) ==
LOC: D.RAD 10:13
DX: J20.9 Acute bronchitis, unspecified (principal)

== ENCOUNTER → 2018-03-07 14:18 | Outpatient (CLI) | payer MEDICARE, OTHER ==
[2016-10-07 13:21] VITALS: BMI 27.8
== END | disposition home or self-care (01) ==
LOC: D.RAD 14:18
DX: J01.90 Acute sinusitis, unspecified (principal)

== ENCOUNTER → 2018-06-21 08:02 | Outpatient (CLI) | payer MEDICARE, OTHER ==
[2016-10-07 13:21] VITALS: BMI 27.8
== END | disposition home or self-care (01) ==
LOC: D.RT 08:00
PROVIDERS: ATTEND Internal Medicine Pulmonary Disease
DX: J45.909 Unspecified asthma, uncomplicated (principal)

== ENCOUNTER → 2018-10-30 10:23 | Outpatient (CLI) | payer MEDICARE, OTHER ==
[2016-10-07 13:21] VITALS: BMI 27.8
[~2018-10-30 10:23] MED LIST changes: +HYDROCODON-ACE1 EAC2 PO; +MONODOX100 MG PO
== END | disposition home or self-care (01) ==
LOC: D.RAD 10:23
PROVIDERS: ATTEND Legal Medicine
DX: M79.644 Pain in right finger(s) (principal)

== ENCOUNTER 2018-10-31 23:12 | Emergency (ER) | payer MEDICARE, OTHER ==
[~2018-10-31] VITALS: Ht 162.6 cm; Wt 75.0 kg
[~2018-10-31 23:12] MED LIST changes: -HYDROCODON-ACE1 EAC2 PO; -MONODOX100 MG PO
[2018-10-31 23:26] VITALS: Ht 162.6 cm; Wt 75.0 kg
[2018-10-31] MEDS ORDERED: HYDROCODON-ACE1 EAC2 PO (23:52)
[2018-10-31] MEDS ORDERED: MONODOX100 MG PO (23:52)
[2018-11-01 00:29] VITALS: BP 157/85
== END 2018-11-01 00:30 | disposition home or self-care (01) ==
LOC: D.ER 23:12
DX: L03.113 Cellulitis of right upper limb (principal); I10 Essential (primary) hypertension

== ENCOUNTER 2018-11-10 10:01 | Outpatient (CLI) | payer MEDICARE, OTHER ==
[2018-10-31 23:26] VITALS: BMI 28.4
[~2018-11-10 10:01] MED LIST changes: +HYDROCODON-ACE1 EAC2 PO; +MONODOX100 MG PO
[2018-11-10 11:32] VITALS: BP 148/81
--- NOTE | 2018-11-10 12:21 | NUR ---
DISCHARGE PAPERWORK SIGNED, ALL QUESTIONS ANSWERED. IV TO RIGHT HAND DC'D TIP INTACT. PT AMBULATED OUT
== END 2018-11-10 12:31 | disposition home or self-care (01) ==
LOC: D.OPS 10:01 → D.MS 10:03 → D.OPS 12:31
DX: L02.511 Cutaneous abscess of right hand (principal)

== ENCOUNTER 2018-11-11 10:00 | Outpatient (CLI) | payer MEDICARE, OTHER ==
[2018-10-31 23:26] VITALS: BMI 28.4
--- NOTE | 2018-11-11 10:10 | NUR ---
PT ARRIVED TO UNIT TO ROOM 2210 FOR ANTBOTIC WILL ADMINSTER WILL AVAIBLE AND WHEN IV ACCESS IS STARTED
[2018-11-11 11:19] VITALS: BP 141/74
--- NOTE | 2018-11-11 11:46 | NUR ---
IV ANTIBIOTIC IS DONE. IV CATH REMOVED WITH TIP INTACT.
--- NOTE | 2018-11-11 11:48 | NUR ---
ANTIBOITIC FINISHED AT THIS TIME
--- NOTE | 2018-11-11 11:59 | NUR ---
VERBAL AND WRITTEN DISCHARGE INSTRUCTIONS GIVEN TO PATIENT AND SPOUSE. PATIENT USED RESTROOM TO VOID BEFORE DISCHARGE. I AMBULATED BOTH THE PATIENT AND SPOUSE TO THE FRONT DOOR.
== END 2018-11-11 12:05 | disposition home or self-care (01) ==
LOC: D.M3 10:00 → D.OPS 10:00 → D.M3 10:01 → D.OPS 12:05
PROVIDERS: ATTEND Legal Medicine
DX: L02.511 Cutaneous abscess of right hand (principal)

== ENCOUNTER → 2019-06-13 10:40 | Outpatient (CLI) | payer MEDICARE, OTHER ==
[2018-10-31 23:26] VITALS: BMI 28.4
== END | disposition home or self-care (01) ==
LOC: D.RAD 10:40
PROVIDERS: ATTEND Legal Medicine
DX: M25.561 Pain in right knee (principal)

== ENCOUNTER 2019-08-24 11:33 | Emergency (ER) | payer MEDICARE ==
[~2019-08-24] VITALS: Ht 162.6 cm; Wt 76.8 kg
[2019-08-24 11:39] VITALS: Ht 162.6 cm; Wt 76.8 kg
[2019-08-24 12:40] VITALS: BP 126/80
== END 2019-08-24 12:40 | disposition home or self-care (01) ==
LOC: D.ER 11:33
DX: S90.32XA Contusion of left foot, initial encounter (principal); I10 Essential (primary) hypertension; J45.909 Unspecified asthma, uncomplicated

== ENCOUNTER → 2020-07-11 09:14 | Outpatient (CLI) | payer MEDICARE ==
[2019-08-24 11:39] VITALS: BMI 29.0
== END | disposition home or self-care (01) ==
LOC: D.LAB 09:14
PROVIDERS: ATTEND Internal Medicine Pulmonary Disease
DX: Z11.52 Encounter for screening for COVID-19 (principal)

== ENCOUNTER → 2020-07-15 11:00 | Outpatient (CLI) | payer MEDICARE, OTHER ==
[2019-08-24 11:39] VITALS: BMI 29.0
== END | disposition home or self-care (01) ==
LOC: D.RT 11:00
PROVIDERS: ATTEND Internal Medicine Pulmonary Disease
DX: J45.909 Unspecified asthma, uncomplicated (principal); Z11.52 Encounter for screening for COVID-19